=== PATIENT | male | born 1985 | race Caucasian/White ===

== ENCOUNTER 2021-04-08 07:36 | Day surgery (SDC) | payer OTHER ==
[~2021-04-08] VITALS: Ht 180.3 cm; Wt 102.1 kg
[2021-04-08 08:00] VITALS: BP 132/89
[2021-04-08] MEDS ORDERED: SYMBICORT1 AE1 IN (08:47)
[2021-04-08 09:10] LABS: HEMATOCRIT 47.7 % (39.0-50.0); HEMOGLOBIN 15.3 g/dl (14.0-18.0); IMMATURE GRANULOCYTES 0.3 % (0.0-5.0); MEAN CORPUSCULAR HGB 29.2 pG CALC (26.0-32.0); MEAN CORPUSCULAR HGB CONC 32.1 g/dL CAL (32.0-36.0); NEUT# 5.39 thou/uL (1.82-7.42); RED BLOOD COUNT 5.24 mill/uL (4.70-6.10)
[2021-04-08 09:34] LABS: ALBUMIN 4.1 g/dL (3.2-5.0); ALKALINE PHOSPHATASE 65 u/l (38-126); ANION GAP 12 (6-22 (CALC)); BILIRUBIN, TOTAL 0.8 mg/dL (0.0-1.4); BUN 14 mg/dL (9-20); BUN/CREATININE RATIO 17 (12-20 (CALC)); CARBON DIOXIDE 26 mmol/l (22-30); CHLORIDE 102 mmol/l (95-108); CREATININE 0.9 mg/dL (0.7-1.3); GFR > 60 ML/MIN (>=60 (CALC)); GFR FOR AFR.AMER. > 60 ML/MIN (>=60 (CALC)); POTASSIUM 4.3 mmol/l (3.5-5.1); SGOT/AST 146 u/l (17-59); SODIUM 136 mmol/l (137-146)
[2021-04-08 19:00] VITALS: BP 113/64
[2021-04-09] VITALS: BP 151/88
[2021-04-09 01:50] VITALS: BP 140/63
[2021-04-09 04:29] VITALS: BP 140/63
== END 2021-04-09 10:34 | disposition home or self-care (01) | DRG 897 ==
LOC: ANR 07:36 → MS2 07:43 → ANR 11:15
PROVIDERS: ATTEND Anesthesiology
DX: F11.20 Opioid dependence, uncomplicated (principal)
CPT/HCPCS: J2060; J2354